=== PATIENT | male | born 1945 | race Caucasian/White ===

== ENCOUNTER 2021-02-15 11:52 | Emergency (ER) | payer MEDICARE ==
--- NOTE | 2021-02-15 12:08 | EDM.PDOC ---
ED HPI GENERAL MEDICAL PROBLEM - General Chief Complaint: Neuro Symptoms/Deficits Stated Complaint: [facility] Time Seen by Provider: 02/15/21 11:56 Source of Information: Reports: Patient, Family (spouse) History Limitations: Reports: Physical Impairment (Denies and impaired memory and answers yes to lots of questions that his flatly states is wrong.) - History of Present Illness INITIAL COMMENTS - FREE TEXT/NARRATIVE: 75-year-old male presents to the ED in the accompaniment of his . He resides in [facility] [place]. Patient is unable to provide any useful history as he answers no to most questions and his indicates that the answers are incorrect. History was primarily therefore obtained from the . She reports that this morning since about 0930 hrs. his speech has been coming out intermittently garbled and in a confused state. She is not sure what he is trying to convey at times. It does not seem to be really an expressive ap hasia it is more confused speech. She reports yesterday he started to walk funny. She states that he started to run with narrow based gait which was totally atypical for him. He usually ambos along with a fairly wide-based gait. Patient is known to be suffering from dementia changes and is on memantine for this. No other medication changes have been made recently. There is been no recent falls or injuries to his head. He did fall about 3 weeks ago and contused his left rib cage which is healing up. Concern is whether or not he had a stroke. A stroke alert was called by nursing staff on this patient and he was attended immediately. He did go to CT scan promptly which did identified diffuse age-appropriate degenerative changes with small vessel ischemic changes in both basal ganglia and prominence of the sulci. There was no definitive evidence of a CVA and no intracranial bleeding or hemorrhage. Onset: Gradual Onset Date: 02/14/21 (Walking abnormally started yesterday. Speech confusion started more today.) Onset Time: 09:30 (Confusion started about 930 today that the appreciated.) Duration: Waxing/Waning (Most part however with the indicates that his speech he remains confused and she is not sure what he is talking about.) Location: Reports: Generalized (Continue speech starting today and abnormal gait starting yesterday.) Quality: Reports: Other (Confused speech coming out garbled and nonsensical at times question whether is exhibiting expressive aphasia. When asked if he can walk normally he says yes. The states that he was walking and an ataxic- like gait yesterday but did not fall. She states that he started almost walking in a brittany) Improves with: Reports: None Worsens with: Reports: None Context: Reports: Other. Denies: Activity, Exercise, Lifting, Sick Contact, Trauma Associated Symptoms: Reports: Confusion (History of early dementia changes.), Cough, Loss of Appetite (Occasional cough.), Malaise, Shortness of Breath. Denies: Chest Pain, cough w sputum, Diaphoresis, Fever/Chills, Headaches, Nausea/Vomiting, Rash, Seizure, Syncope (At times.), Weakness Treatments HAND FORMER: Reports: Other (see below) (No new medications. Particular he is on no blood thinners.) - Related Data Allergies Allergy/AdvReac Type Severity Reaction Status Date / Time Penicillins Allergy Rash Verified 02/15/21 12:24 Home Meds: Home Meds Levothyroxine 25 mcg PO ACBREAKFAST 02/15/21 [History] Memantine [Namenda] 5 mg PO DAILY 02/15/21 [History] Omeprazole 20 mg PO DAILY 02/15/21 [History] Venlafaxine HCl [Venlafaxine ER] 37.5 mg PO DAILY 02/15/21 [History] amLODIPine [Norvasc] 5 mg PO DAILY #30 tab 02/15/21 [Rx] Past Medical History Respiratory History: Reports: COPD (Age-related. Not on oxygen.) Gastrointestinal History: Reports: GERD Genitourinary History: Reports: BPH (Nocturia usually x3.), Urinary Incontinence Musculoskeletal History: Reports: Back Pain, Chronic, Osteoarthritis, Other (See Below) (Pain in both knees hips neck and shoulders at times.) Neurological History: Reports: Alzheimers Disease (Early dementia changes particular with markedly impaired short-term memory.) Psychiatric History: Reports: Dementia, Depression (Is on venlafaxine within the last 6 months for depressive-like symptoms.) Endocrine/Metabolic History: Reports: Hypothyroidism (Currently on levothyroxine supplement for hypothyroidism) Social & Family History - Living Situation & Occupation 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 He answers no to most questions and his contradicts him) Reason Not Obtained: History and review of symptoms primarily obtained from his . Constitutional: Reports: Decreased Appetite. Denies: Fever, Chills, Malaise, Weakness, Fatigue, Weight Loss HEENT: Reports: Glasses (Reading.) Respiratory: Reports: Shortness of Breath, Cough (Occasional). Denies: Wheezing, Pleuritic Chest Pain (1 mild COPD.), Sputum, Hemoptysis ( nonproductive cough) Cardiovascular: Reports: Dyspnea on Exertion. Denies: Chest Pain, Blood Pressure Problem, Claudication, Edema, Lightheadedness, Orthopnea (Not known to have hypertension.) Endocrine: Reports: Fatigue (Sometimes.) GI/Abdominal: Reports: Constipation, Decreased Appetite (Or constipation issues.) : Reports: Frequency, Incontinence, Other (Rare incontinence nocturia x3 known BPH.) Musculoskeletal: Reports: Neck Pain, Shoulder Pain, Back Pain, Joint Pain (Knees and hips as well. Generalized osteoarthritic changes in his hands) Skin: Reports: No Symptoms Neurological: Reports: Confusion, Headache (More noticeable recently with impaired short-term memory. Rare headache.), Difficulty Walking (Engine gait yesterday where he was almost running with a narrow based gait and his reports that he usually walks with a wide-based ambling type gait.), Change in Speech (Change in speech noted this morning with almost garbled nonsensical speech seems to be more confused speech versus expressive aphasia.). Denies: Numbness, Syncope, Tingling, Weakness Psychiatric: Reports: Depression Hematologic/Lymphatic: Reports: No Symptoms (Noticed with depression and started on venlafaxine about 6 months ago.) Immunologic: Reports: No Symptoms ED EXAM, NEURO - Physical Exam Exam: See Below Exam Limited By: Altered Mental Status (No useful history could be gleaned from the patient. All history was obtained from the .) General Appearance: Alert, WD/WN, No Apparent Distress, Other (Vital signs show temperature 36.2 degrees. Heart rate 60 and sinus respiratory to 16 with O2 sats of 95% room air initial BP was elevated at 186/90 but did come down to 152/88.). No: Anxious Eye Exam: Bilateral Eye: Normal Inspection (No scleral icterus or blepharal pallor.), PERRL Ears: Normal TMs Throat/Mouth: Normal Inspection, Normal Lips, Normal Oropharynx, Other (Uvula is in the midline.) Head Exam: Atraumatic, Normocephalic, Other (No outward signs of head or facial trauma.) Neck: Normal Inspection, Limited Range of Motion (This on lateral rotation with limited). No: Carotid Bruit, Lymphadenopathy (L) ( lateral flexion and rotation.), Lymphadenopathy (R), Thyromegaly Respiratory/Chest: No Respiratory Distress, Lungs Clear, Normal Breath Sounds, Decreased Breath Sounds. No: Rales, Rhonchi, Wheezing Cardiovascular: Regular Rate, Rhythm, No Edema, No Gallop, No Murmur, No Rub. No: Normal Peripheral Pulses GI/Abdominal: Normal Bowel Sounds, Soft, Non-Tender, No Organomegaly, No Abnormal Bruit, No Mass, Pelvis Stable Neurological: Alert, Normal Mood/Affect, Normal Dorsiflexion, CN II-XII Intact, Normal Plantar Flexion, No Motor/Sensory Deficits (Motor power and tone in all extremities appear to be normal.), Other (No sustained clonus.) DTR: 1+: Achilles (R), Achilles (L), 2+: Patella (R), Patella (L), 3+: Bicep (R), Bicep (L) Back Exam: Normal Inspection, Decreased Range of Motion (As of osteoarthritic change in his back. He could not reach past his pockets due to limited range of motion in his back.) Extremities: Non-Tender, Other (Evidence of osteoarthritic changes both knees and both hips.) Psychiatric: Normal Affect, Normal Mood Skin Exam: Warm, Dry, Intact, Normal Color, No Rash Course - Vital Signs Last Recorded V/S: Last Vital Signs Temp 36.2 C 02/15/21 12:00 Pulse 60 02/15/21 12:00 Resp 16 02/15/21 12:00 BP 186/90 H 02/15/21 12:00 Pulse Ox 95 02/15/21 12:00 - Orders/Labs/Meds Orders: Active Orders 24 hr Category Date Time Status EKG Documentation Completion [RC] STAT Care 02/15/21 12:05 Active Dextrose 5%-0.9% NaCl [Dextrose 5%-Normal Saline] 1,000 Med 02/15/21 14:15 Active ml IV ASDIRECTED Medication Orders Dextrose/Sodium Chloride (Dextrose 5%-Normal Saline) 1,000 mls @ 999 mls/hr IV ASDIRECTED SAAD Last Admin: 02/15/21 14:28 Dose: 999 mls/hr Documented by: RAD Labs: Laboratory Tests 02/15/21 02/15/21 02/15/21 Range/Units 12:05 12:05 12:05 WBC 6.34 (4.23-9.07) K/mm3 RBC 5.67 (4.63-6.08) M/mm3 Hgb 16.2 (13.7-17.5) gm/dl Hct 48.5 (40.1-51.0) % MCV 85.5 D (79.0-92.2) fl MCH 28.6 (25.7-32.2) pg MCHC 33.4 (32.2-35.5) g/dl RDW Std Deviation 42.2 (35.1-43.9) fL Plt Count 228 (163-337) K/mm3 MPV 10.3 (9.4-12.3) fl Neut % (Auto) 57.9 (34.0-67.9) % Lymph % (Auto) 25.4 (21.8-53.1) % [place] % (Auto) 11.8 (5.3-12.2) % Eos % (Auto) 2.7 (0.8-7.0) Baso % (Auto) 1.9 H (0.1-1.2) % Neut # (Auto) 3.67 (1.78-5.38) K/mm3 Lymph # (Auto) 1.61 (1.32-3.57) K/mm3 [place] # (Auto) 0.75 (0.30-0.82) K/mm3 Eos # (Auto) 0.17 (0.04-0.54) K/mm3 Baso # (Auto) 0.12 H (0.01-0.08) K/mm3 ESR (0-15) mm/hr PT 10.6 (9.7-12.0) SECONDS INR 0.99 APTT 27.1 (21.7-31.4) SECONDS Sodium 138 (136-145) mEq/L Potassium 4.2 (3.5-5.1) mEq/L Chloride 101 (98-107) mEq/L Carbon Dioxide 27 (21-32) mEq/L Anion Gap 14.2 (5-15) BUN 12 (7-18) mg/dL Creatinine 1.3 (0.7-1.3) mg/dL Est Cr Clr Drug Dosing TNP Estimated GFR (MDRD) 54 (>60) mL/min BUN/Creatinine Ratio 9.2 L (14-18) Glucose 90 (83-115) mg/dL Calcium 8.8 (8.5-10.1) mg/dL Magnesium 2.2 (1.8-2.4) mg/dl Total Bilirubin 0.6 (0.2-1.0) mg/dL AST 18 (15-37) U/L ALT 27 (16-63) U/L Alkaline Phosphatase 132 H (46-116) U/L CK-MB (CK-2) 1.1 (0-3.6) ng/ml Troponin I < 0.017 (0.00-0.056) ng/mL C-Reactive Protein 0.2 (<1.0) mg/dL NT-Pro-B Natriuret Pep (0-450) pg/mL Total Protein 7.2 (6.4-8.2) g/dl Albumin 3.5 (3.4-5.0) g/dl Globulin 3.7 gm/dL Albumin/Globulin Ratio 1.0 (1-2) Cholesterol 303 H (<200) mg/dL LDL Cholesterol Direct 211 H* (<100) mg/dL HDL Cholesterol 55.0 (40-59) mg/dL TSH 3rd Generation 2.057 (0.358-3.74) uIU/mL Urine Color (Yellow) Urine Appearance (Clear) Urine pH (5.0-8.0) Ur Specific [place] (1.005-1.030) Urine Protein (Negative) Urine Glucose (UA) (Negative) Urine Ketones (Negative) Urine Occult Blood (Negative) Urine Nitrite (Negative) Urine Bilirubin (Negative) Urine Urobilinogen (0.2-1.0) Ur Leukocyte Esterase (Negative) Urine RBC (0-5) /hpf Urine WBC (0-5) /hpf Ur Epithelial Cells (0-5) /hpf Urine Bacteria (FEW) /hpf Urine Mucus (FEW) /hpf SARS-CoV-2 RNA (GIRISH) (NEGATIVE) 02/15/21 02/15/21 02/15/21 Range/Units 12:05 12:05 12:40 WBC (4.23-9.07) K/mm3 RBC (4.63-6.08) M/mm3 Hgb (13.7-17.5) gm/dl Hct (40.1-51.0) % MCV (79.0-92.2) fl MCH (25.7-32.2) pg MCHC (32.2-35.5) g/dl RDW Std Deviation (35.1-43.9) fL Plt Count (163-337) K/mm3 MPV (9.4-12.3) fl Neut % (Auto) (34.0-67.9) % Lymph % (Auto) (21.8-53.1) % [place] % (Auto) (5.3-12.2) % Eos % (Auto) (0.8-7.0) Baso % (Auto) (0.1-1.2) % Neut # (Auto) (1.78-5.38) K/mm3 Lymph # (Auto) (1.32-3.57) K/mm3 [place] # (Auto) (0.30-0.82) K/mm3 Eos # (Auto) (0.04-0.54) K/mm3 Baso # (Auto) (0.01-0.08) K/mm3 ESR 2 (0-15) mm/hr PT (9.7-12.0) SECONDS INR APTT (21.7-31.4) SECONDS Sodium (136-145) mEq/L Potassium (3.5-5.1) mEq/L Chloride (98-107) mEq/L Carbon Dioxide (21-32) mEq/L Anion Gap (5-15) BUN (7-18) mg/dL Creatinine (0.7-1.3) mg/dL Est Cr Clr Drug Dosing Estimated GFR (MDRD) (>60) mL/min BUN/Creatinine Ratio (14-18) Glucose (83-115) mg/dL Calcium (8.5-10.1) mg/dL Magnesium (1.8-2.4) mg/dl Total Bilirubin (0.2-1.0) mg/dL AST (15-37) U/L ALT (16-63) U/L Alkaline Phosphatase (46-116) U/L CK-MB (CK-2) (0-3.6) ng/ml Troponin I (0.00-0.056) ng/mL C-Reactive Protein (<1.0) mg/dL NT-Pro-B Natriuret Pep 65 (0-450) pg/mL Total Protein (6.4-8.2) g/dl Albumin (3.4-5.0) g/dl Globulin gm/dL Albumin/Globulin Ratio (1-2) Cholesterol (<200) mg/dL LDL Cholesterol Direct (<100) mg/dL HDL Cholesterol (40-59) mg/dL TSH 3rd Generation (0.358-3.74) uIU/mL Urine Color Yellow (Yellow) Urine Appearance Clear (Clear) Urine pH 7.0 (5.0-8.0) Ur Specific [place] 1.015 (1.005-1.030) Urine Protein Negative (Negative) Urine Glucose (UA) Negative (Negative) Urine Ketones Negative (Negative) Urine Occult Blood Negative (Negative) Urine Nitrite Negative (Negative) Urine Bilirubin Negative (Negative) Urine Urobilinogen 0.2 (0.2-1.0) Ur Leukocyte Esterase Negative (Negative) Urine RBC Not seen (0-5) /hpf Urine WBC Not seen (0-5) /hpf Ur Epithelial Cells Not seen (0-5) /hpf Urine Bacteria Not seen (FEW) /hpf Urine Mucus Not seen (FEW) /hpf SARS-CoV-2 RNA (GIRISH) (NEGATIVE) 02/15/21 Range/Units 14:04 WBC (4.23-9.07) K/mm3 RBC (4.63-6.08) M/mm3 Hgb (13.7-17.5) gm/dl Hct (40.1-51.0) % MCV (79.0-92.2) fl MCH (25.7-32.2) pg MCHC (32.2-35.5) g/dl RDW Std Deviation (35.1-43.9) fL Plt Count (163-337) K/mm3 MPV (9.4-12.3) fl Neut % (Auto) (34.0-67.9) % Lymph % (Auto) (21.8-53.1) % [place] % (Auto) (5.3-12.2) % Eos % (Auto) (0.8-7.0) Baso % (Auto) (0.1-1.2) % Neut # (Auto) (1.78-5.38) K/mm3 Lymph # (Auto) (1.32-3.57) K/mm3 [place] # (Auto) (0.30-0.82) K/mm3 Eos # (Auto) (0.04-0.54) K/mm3 Baso # (Auto) (0.01-0.08) K/mm3 ESR (0-15) mm/hr PT (9.7-12.0) SECONDS INR APTT (21.7-31.4) SECONDS Sodium (136-145) mEq/L Potassium (3.5-5.1) mEq/L Chloride (98-107) mEq/L Carbon Dioxide (21-32) mEq/L Anion Gap (5-15) BUN (7-18) mg/dL Creatinine (0.7-1.3) mg/dL Est Cr Clr Drug Dosing Estimated GFR (MDRD) (>60) mL/min BUN/Creatinine Ratio (14-18) Glucose (83-115) mg/dL Calcium (8.5-10.1) mg/dL Magnesium (1.8-2.4) mg/dl Total Bilirubin (0.2-1.0) mg/dL AST (15-37) U/L ALT (16-63) U/L Alkaline Phosphatase (46-116) U/L CK-MB (CK-2) (0-3.6) ng/ml Troponin I (0.00-0.056) ng/mL C-Reactive Protein (<1.0) mg/dL NT-Pro-B Natriuret Pep (0-450) pg/mL Total Protein (6.4-8.2) g/dl Albumin (3.4-5.0) g/dl Globulin gm/dL Albumin/Globulin Ratio (1-2) Cholesterol (<200) mg/dL LDL Cholesterol Direct (<100) mg/dL HDL Cholesterol (40-59) mg/dL TSH 3rd Generation (0.358-3.74) uIU/mL Urine Color (Yellow) Urine Appearance (Clear) Urine pH (5.0-8.0) Ur Specific [place] (1.005-1.030) Urine Protein (Negative) Urine Glucose (UA) (Negative) Urine Ketones (Negative) Urine Occult Blood (Negative) Urine Nitrite (Negative) Urine Bilirubin (Negative) Urine Urobilinogen (0.2-1.0) Ur Leukocyte Esterase (Negative) Urine RBC (0-5) /hpf Urine WBC (0-5) /hpf Ur Epithelial Cells (0-5) /hpf Urine Bacteria (FEW) /hpf Urine Mucus (FEW) /hpf SARS-CoV-2 RNA (GIRISH) Negative (NEGATIVE) Meds: Medications Generic Name Dose Route Start Last Admin Trade Name Freq PRN Reason Stop Dose Admin Dextrose/Sodium Chloride 1,000 mls @ 999 mls/hr 02/15/21 14:15 02/15/21 14:28 Dextrose 5%-Normal Saline IV 999 mls/hr ASDIRECTED SAAD Administration Discontinued Medications Generic Name Dose Route Start Last Admin Trade Name Freq PRN Reason Stop Dose Admin Acetaminophen 650 mg 02/15/21 14:15 02/15/21 14:33 Acetaminophen 325 Mg Tab PO 02/15/21 14:16 650 mg ONETIME ONE Administration Al Hydroxide/Mg Hydroxide 30 ml 02/15/21 14:54 02/15/21 15:24 Aluminum Hydroxide/Magnesium Hydroxide/Simethicone Susp 30 Ml Cup PO 02/15/21 14:55 30 ml ONETIME ONE Administration Hydralazine HCl 10 mg 02/15/21 14:19 02/15/21 14:34 Hydralazine 20 Mg/Ml Sdv IVPUSH 02/15/21 14:20 10 mg ONETIME ONE Administration Hydromorphone HCl 0.25 mg 02/15/21 14:16 02/15/21 14:34 Hydromorphone 0.5 Mg/0.5 Ml Syringe IVPUSH 02/15/21 14:17 0.25 mg ONETIME ONE Administration Hydromorphone HCl 0.5 mg 02/15/21 15:28 02/15/21 15:44 Hydromorphone 0.5 Mg/0.5 Ml Syringe IVPUSH 02/15/21 15:29 0.5 mg ONETIME ONE Administration - Radiology Interpretation Free Text/Narrative:: 75-year-old male presents to the ED in the accompaniment of his concerned about possible stroke. She provides the history as he is not able to provide any history that is truthful. He answers no to most questions and his contradicts him. He indicated he was on no medications and he is. She states that about 930 this morning his speech was noted to be confused and perhaps somewhat garbled and nonsensical. Difficult to say that he had an expressive aphasia versus just confused speech. She states yesterday she noticed him exhibiting an abnormal gait where he was almost running with a narrow based gait and he never does this. She states he usually ambos along with the wind based gait. Patient is known to be suffering from early dementia changes and is on memantine for the last 3 months. No other new medications have been in been introduced. He was mildly hypertensive upon arrival but his blood pressure did come down. A stroke alert was called in this patient - Re-Assessments/Exams Free Text/Narrative Re-Assessment/Exam: 02/15/21 12:43 CT of the brain and head done without any contrast reveals ventricles along with the basal cisterns and sulci over the convexities to be mildly prominent. Scattered areas of diminished density are noted within the subcortical and periventricular white matter compatible with small vessel ischemic demyelination changes. No other abnormal parenchymal densities are seen. No evidence of intracranial hemorrhage. No midline shift or mass-effect is identified. Bone window settings were reviewed. Visualized mastoid and paranasal sinuses show nothing acute. No acute calvarial finding is appreciated. Impression is senescent changes as noted above. Nothing acute. Chest x-ray done portably shows slight linear density within the right lung base either due to artifact or mild scarring. Lungs are otherwise clear with no acute parenchymal changes. Slight pleural density is noted within the right lung base most likely representing an old healed rib fracture with callus formation. Heart size is normal. Tortuous thoracic aorta is seen. 02/15/21 12:56 there is an opening in the MRI today and therefore an MRI of the brain without contrast was ordered. We will trying to differentiate whether he is actually had a cerebrovascular accident versus a sudden change in behaviors and speech secondary to degenerative brain disease. 02/15/21 14:07 White count is normal at 6.34. The auto differential shows 58% neutrophils. Hemoglobin is 16.2 with hematocrit of 48.5 indicating some degree of hemoconcentration. MCV is 85.5. Platelet count 228,000. Sed rate is only 2. PT is 10.6 with an INR of 0.99. PTT is 27.1. Sodium is 138 with a potassium of 4.2. Chloride 101 with a bicarb of 27. Anion gap is 14.2. BUN is 12 with a creatinine of 1.3. GFR is 54. BUN/creatinine ratio is 9.2. Glucose is 90 with a calcium of 8.8. Magnesium is 2.2. Liver function is normal other than slightly elevated alkaline phosphatase at 132. CK-MB fraction is 1.1 troponin I is less than 0.017. C-reactive protein is 0.2. BNP is 65 total protein 7.2. Albumin fraction is 3.5. Globulin is 3.7 cholesterol is elevated at 303 with an LDL of 211 and an HDL of 55 indicating that his risk ratio is higher than 5.2 and he would benefit from statins. TSH is 2.057. Urinalysis is normal. 02/15/21 14:08 MRI of the brain completed without contrast. Ventricles along with the basal cisterns and sulci over the convexities are mildly prominent. There are no acute diffusion abnormalities seen. Scattered areas of increased signal are noted within the periventricular and subcortical white matter which i s compatible with fairly prominent small vessel ischemic demyelination change. Normal signal void is seen within the major cerebral arteries within the skull base. Visualized paranasal sinuses and mastoid sinuses show nothing acute. Therefore no clinical evidence of cerebrovascular accident. 02/15/21 14:18 I have discussed the findings with the in terms that there is no evidence of cerebrovascular accident. She was wondering if she should take him to [facility] to the neurologist. I indicated to her that neurology really would not have anything to offer since it is a degenerative change in his brain. We just cannot identify a trigger that made his speech and gait abnormal acutely. He does not drink alcohol. Plan he is a little hemoconcentrated therefore an IV of D5 normal saline will be started. He is complaining of a headache at this time. He will be given Tylenol 650 mg p.o. and Dilaudid 0.25 mg IV. Pressures also remained elevated with a systolic blood pressure 180 or greater. Going to give him hydralazine 10 mg IV to lower his blood pressure as well. 02/15/21 15:28 he just got the Maalox so it is hard to comment if his heartburns any better. Headache seems to be getting worse and seems to wax and wane a bit. He tolerated the small dose of Dilaudid very well. I will repeat Dilaudid 0.5 mg IV at this time for headache relief 02/15/21 16:17 He has completed a liter of IV fluids. Headache seems to be better as well. His systolic blood pressure has remained well above 160 throughout his entire stay in the ED. I am going to place him therefore on amlodipine 5 mg once daily in the hopes of preventing any adverse effects from systolic hypertension. The plan will be to have him follow-up with Gabby Mai in [facility] and referral to neurology services if felt necessary. The question is whether the venlafaxine is helping much at all anymore and he may benefit from the addition of Aricept in addition to the memantine that he is already taking. Departure - Departure Time of Disposition: 16:19 Disposition: Home, Self-Care 01 Condition: Fair Clinical Impression: Dementia Qualifiers: Dementia type: Alzheimer's Alzheimer's disease onset: unspecified onset Dementia behavioral disturbance: without behavioral disturbance Qualified Code(s): G30.9 - Alzheimer's disease, unspecified - Discharge Information *PRESCRIPTION DRUG MONITORING PROGRAM REVIEWED*: Not Applicable *COPY OF PRESCRIPTION DRUG MONITORING REPORT IN PATIENT QUENTIN: Not Applicable Prescriptions: amLODIPine [Norvasc] 5 mg PO DAILY #30 tab Referrals: Re Mai PA-C [Primary Care Provider] - Forms: ED Department Discharge Additional Instructions: Evaluation in the emergency room today in regards to changes in behavior and speech patterns over the last couple of days. Patient is known to be suffering from organic brain disease or aging brain with development of dementia over the last 4 to 5 years. Speech patterns change this morning where the speech was nonsensical and perhaps garbled and not understandable. Therefore concerns arose as to whether or not he may be suffering a stroke affecting the speech area of the brain called Broca's area. Also identified abnormal walking or gait pattern yesterday where he seemed to be almost running instead of his normal slow ambulating type gait. This precipitated investigations by way of an initial CT scan as part of a stroke alert in the hospital. CT scan revealed advanced degenerative brain disease with no evidence of acute stroke or intracranial bleeding or mass-effect. MRI of the brain was also able to be obtained today and it did not did not demonstrate any signs of a stroke either. It does show advanced degenerative changes throughout the brain compatible with Alzheimer's disease and dementia. Lab test revealed that he was mildly dehydrated and therefore he received a liter of IV fluids while in the emergency room. At this time I would not suggest any changes to his medication. I would suggest making a follow-up arrangement with his primary care provider and probably a repeat neurology consultation to see if they have anything else to offer in terms of controlling or slowing down the rate of brain degeneration. He is currently on memantine since before which I would advise to continue at this time. Sepsis Event Note (ED) - Focused Exam Vital Signs: Vital Signs Temp Pulse Resp BP Pulse Ox 02/15/21 12:00 36.2 C 60 16 186/90 H 95 - My Orders Last 24 Hours: My Active Orders 02/15/21 12:05 EKG Documentation Completion [RC] STAT 02/15/21 14:15 Dextrose 5%-0.9% NaCl [Dextrose 5%-Normal Saline] 1,000 ml IV ASDIRECTED - Assessment/Plan Last 24 Hours: My Active Orders 02/15/21 12:05 EKG Documentation Completion [RC] STAT 02/15/21 14:15 Dextrose 5%-0.9% NaCl [Dextrose 5%-Normal Saline] 1,000 ml IV ASDIRECTED
--- NOTE | 2021-02-15 12:38 | CT ---
Head CT Technique: Multiple axial sections through the brain were obtained. Intravenous contrast was not utilized. Reconstructed coronal and sagittal images were obtained. Comparison: No prior intracranial imaging is available. Findings: Ventricles along with basal cisterns and sulci over the convexities are mildly prominent. Scattered areas of diminished density are noted within the subcortical and periventricular white matter compatible with small vessel ischemic demyelination change. No other abnormal parenchymal densities are seen. No evidence of intracranial hemorrhage. No midline shift or mass-effect is appreciated. Bone window settings were reviewed. Visualized mastoid and paranasal sinuses show nothing acute. No acute calvarial finding is appreciated. Impression: 1. Senescent change as noted above. 2. Nothing acute is appreciated on noncontrast head CT study. Note: Consider MRI brain to further evaluate patient's symptoms. Diagnostic code #2
--- NOTE | 2021-02-15 12:39 | CR ---
Chest: Portable view of the chest was obtained. Comparison: No prior chest imaging is available. Slightly linear density is seen within right lung base either due to artifact or mild scarring. Lungs otherwise are clear with no acute parenchymal change. Slight pleural density is noted within the right lung base most likely representing old healed rib fracture with callus. Heart size is normal. Tortuous thoracic aorta is seen. Impression: 1. Findings within the right lung base believed to be incidental as noted above. 2. Nothing acute is seen. Diagnostic code #2
--- NOTE | 2021-02-15 13:40 | MR ---
MRI brain Technique: T1 and T2 FLAIR sagittal; T2, T2 FLAIR, T1 and diffusion axial; gradient echo and T1-weighted coronal images were obtained. Comparison: Prior head CT study of 02/15/21. Findings: Ventricles along with basal cisterns and sulci over the convexities are mildly prominent. There are no acute diffusion abnormalities being seen. Scattered areas of increased signal are noted within the periventricular and subcortical white matter which is compatible with fairly prominent small vessel ischemic demyelination change. Normal signal void is seen within the major cerebral arteries within the skull base. Visualized paranasal sinuses and mastoid sinuses show nothing acute. Impression: 1. Senescent change as noted above. 2. No acute diffusion abnormalities are appreciated. Diagnostic code #2
[2021-02-15] MEDS ORDERED: Acetaminophen 325 MG Tab PO ONE (14:15)
[2021-02-15] MEDS ORDERED: Dextrose 5%-0.9% NaCl 1,000 ML IV SCH (14:15)
[2021-02-15] MEDS ORDERED: HYDROmorphone 0.5 MG/0.5 ML Syringe IVPUSH ONE ×2 (14:16→15:28)
[2021-02-15] MEDS ORDERED: hydrALAZINE 20 MG/ML SDV IVPUSH ONE (14:19)
[2021-02-15] MEDS ORDERED: Aluminum Hydroxide/Magnesium Hydroxide/Simethicone Susp 30 ML Cup PO ONE (14:54)
[2021-02-15] MEDS ORDERED: Ondansetron 4 MG Tab.DIS ONE (16:39)
[2021-02-15] MEDS ORDERED: Ondansetron 4 MG Tab.DIS PO ONE (16:40)
== END 2021-02-15 16:45 | disposition home or self-care (01) ==
LOC: JD.ED 11:52
DX: G30.9 Alzheimer's disease, unspecified (principal); F02.80 Dementia in other diseases classified elsewhere, unspecified severity, without behavioral disturbance, psychotic disturbance, mood disturbance, and anxiety; J44.9 Chronic obstructive pulmonary disease, unspecified; K21.9 Gastro-esophageal reflux disease without esophagitis; E03.9 Hypothyroidism, unspecified; Z20.822 Contact with and (suspected) exposure to COVID-19; Z88.0 Allergy status to penicillin; Z79.899 Other long term (current) drug therapy
CPT/HCPCS: 36415; 70450; 70551; 71045; 80053; 81001; 82465; 82553; 82947; 83718; 83721; 83735; 83880; 84443; 84484; 85025; 85610; 85652; 85730; 86140; 93005; 96374; 96375; 96376; 99285; A9270; J0360; J1170; J7042; U0002; 99284